=== PATIENT | male | born 1995 | race American Indian/Alaskan Native ===

== ENCOUNTER 2018-12-24 10:31 | Emergency (ER) | payer OTHER ==
[~2018-12-24] VITALS: Ht 170.2 cm; Wt 65.8 kg
[2018-12-24] MEDS ORDERED: SEIZURE MED (10:48)
[2018-12-24] MEDS ORDERED: IBUP600 PO (11:24)
== END 2018-12-24 11:34 | disposition home or self-care (01) ==
LOC: ER 10:31
DX: M54.5 Low back pain (principal); M53.3 Sacrococcygeal disorders, not elsewhere classified; F17.200 Nicotine dependence, unspecified, uncomplicated; Z79.899 Other long term (current) drug therapy
CPT/HCPCS: 72100; 99283-25

== ENCOUNTER 2019-01-06 23:36 | Emergency (ER) | payer OTHER ==
[~2019-01-06] VITALS: Ht 172.7 cm; Wt 65.8 kg
[~2019-01-06 23:36] MED LIST: IBUP600 PO; SEIZURE MED
[2019-01-06] MEDS ORDERED: Keppra750 MG PO (23:52)
[2019-01-07] MEDS ORDERED: IBUP600 PO (00:13)
== END 2019-01-07 00:32 | disposition home or self-care (01) ==
LOC: ER 23:36
DX: S60.221A Contusion of right hand, initial encounter (principal); W22.8XXA Striking against or struck by other objects, initial encounter; Z79.899 Other long term (current) drug therapy; F17.220 Nicotine dependence, chewing tobacco, uncomplicated
CPT/HCPCS: 29125; 73130; 99283-25; L3917

== ENCOUNTER 2019-02-13 21:33 | Emergency (ER) | payer OTHER ==
[~2019-02-13] VITALS: Ht 170.2 cm; Wt 65.8 kg
[~2019-02-13 21:33] MED LIST changes: +Keppra750 MG PO
== END 2019-02-13 23:20 | disposition home or self-care (01) ==
LOC: ER 21:33
DX: S43.402A Unspecified sprain of left shoulder joint, initial encounter (principal); R56.9 Unspecified convulsions; F17.220 Nicotine dependence, chewing tobacco, uncomplicated; X58.XXXA Exposure to other specified factors, initial encounter
CPT/HCPCS: 36415; 71046; 73030; 93005; 93010; 99285-25

== ENCOUNTER 2019-02-14 14:34 | Emergency (ER) | payer OTHER ==
[~2019-02-14] VITALS: Ht 170.2 cm; Wt 65.3 kg
== END 2019-02-14 14:58 | disposition home or self-care (01) ==
LOC: ER 14:34
DX: M21.822 Other specified acquired deformities of left upper arm (principal); F17.220 Nicotine dependence, chewing tobacco, uncomplicated
CPT/HCPCS: 29105

== ENCOUNTER 2019-03-24 17:53 | Emergency (ER) | payer OTHER | END 2019-03-24 18:39 | disposition left against medical advice (07) | LOC: ER 17:53 | DX: Z53.21 Procedure and treatment not carried out due to patient leaving prior to being seen by health care provider (principal) ==